=== PATIENT | male | born 1995 | race African-American/Black ===

== ENCOUNTER 2017-12-19 22:34 | Inpatient (IN) | payer MEDICAID ==
[2017-12-20 01:48] LABS: ADD MAN DIFF? NO
[2017-12-20 01:51] LABS: BASOPHIL # 0.1 10^3/ul (0.0-0.1); BASOPHILS % 0.5 % (0.0-2.0); EOSINOPHILS % 0.2 % (0.0-7.0); HEMATOCRIT 37.6 % (42.0-52.0); HEMOGLOBIN 12.3 g/dl (14.0-18.0); IMMATURE GRANS #M 0.02 10^3/ul; IMMATURE GRANS % (M) 0.2 %; LYMPHOCYTES # 1.9 10^3/ul (0.8-2.9); LYMPHOCYTES % 18.1 % (15.0-51.0); MEAN CORPUSCULAR HEMOGLOBIN 28.1 pg (29.0-33.0); MEAN CORPUSCULAR HGB CONC 32.7 g/dl (32.0-37.0); MEAN CORPUSCULAR VOLUME 85.8 fl (82.0-101.0); MEAN PLATELET VOLUME 9.8 fl (7.4-10.4); MONOCYTE # 0.7 10^3/ul (0.3-0.9); MONOCYTES % 6.5 % (0.0-11.0); NEUTROPHIL # 7.6 10^3/ul (1.6-7.5); NEUTROPHILS % 74.5 % (39.0-77.0); PLATELET COUNT 460 10^3/UL (140-415); RED BLOOD COUNT 4.38 10^6/ul (4.70-6.10); RED CELL DISTRIBUTION WIDTH 12.2 % (11.5-14.5)
[2017-12-20 01:51] LABS: WHITE BLOOD COUNT 10.3 10^3/ul (4.8-10.8)
[2017-12-20] MEDS: PIPER-TAZO 3.375 GM IV (PMX) 100 ML IVPB (01:58)
[2017-12-20] MEDS: ONDANSETRON 4 MG INJ IV (02:10)
[2017-12-20] MEDS: morphine 4 MG/ML VIAL IV (02:11)
[2017-12-20 02:12] LABS: INR 1.12; PROTIME 14.6 Sec (11.9-14.9); PT RATIO 1.1
[2017-12-20 02:19] LABS: ALANINE AMINOTRANSFERASE 22 IU/L (13-69); ALBUMIN 3.9 g/dl (3.3-4.9); ALBUMIN/GLOBULIN RATIO 0.72; ALKALINE PHOSPHATASE 165 IU/L (42-121); ANION GAP 13 (8-16); ASPARTATE AMINO TRANSFERASE 29 IU/L (15-46); BILIRUBIN,INDIRECT 0.2 mg/dl (0-1.1); BILIRUBIN,TOTAL 0.2 mg/dl (0.2-1.3); BLOOD UREA NITROGEN 6 mg/dl (7-20); CALCIUM 9.7 mg/dl (8.4-10.2); CARBON DIOXIDE 30 mmol/L (21-31); CHLORIDE 100 mmol/L (97-110); CREATININE 0.61 mg/dl (0.61-1.24); GLUCOSE 92 mg/dl (70-220); POTASSIUM 4.4 mmol/L (3.5-5.1); SODIUM 139 mmol/L (135-144); TOTAL PROTEIN 9.3 g/dl (6.1-8.1)
[2017-12-20 02:31] LABS: B-TYPE NATRIURETIC PEPTIDE 88 PG/ML (0-125); TROPONIN-I < 0.010 ng/ml (0.000-0.120)
[2017-12-20] MEDS ORDERED: HYDROCODONE/APAP (5/325) TAB PO (04:30)
[2017-12-20] MEDS ORDERED: ALBUTEROL/IPRATROPIUM (NEB) 3 ML AMP HHN (04:30)
[2017-12-20] MEDS ORDERED: NACL 0.9% 3 ML SYG IV (04:30)
[2017-12-20] MEDS ORDERED: ONDANSETRON 4 MG INJ IV (04:30)
[2017-12-20] MEDS ORDERED: VANCOMYCIN IV PER PHARMACY XX (04:30)
[2017-12-20] MEDS ORDERED: ACETAMINOPHEN 325 MG TAB PO (04:30)
[2017-12-20] MEDS: VANCOMYCIN 1.25 GM in SOD CHLORIDE 0.9% 250 ML IVPB (05:31)
[2017-12-20] MEDS: CEFEPIME 1GM/50 ML (PMX) 50 ML IVPB ×2 (10:59→23:21)
[2017-12-20] MEDS: HYDROCODONE/APAP (5/325) TAB PO ×2 (11:13→21:18)
[2017-12-20] MEDS: VANCOMYCIN 1 GM 250 ML IVPB ×2 (13:50→21:13)
[2017-12-21 04:06] LABS: ADD MAN DIFF? NO
[2017-12-21 04:07] LABS: BASOPHILS % 0.8 % (0.0-2.0); EOSINOPHILS # 0.2 10^3/ul (0.0-0.5); EOSINOPHILS % 3.5 % (0.0-7.0); HEMATOCRIT 34.9 % (42.0-52.0); HEMOGLOBIN 11.1 g/dl (14.0-18.0); LYMPHOCYTES # 1.7 10^3/ul (0.8-2.9); MEAN CORPUSCULAR HEMOGLOBIN 27.5 pg (29.0-33.0); MEAN CORPUSCULAR HGB CONC 31.8 g/dl (32.0-37.0); MEAN CORPUSCULAR VOLUME 86.4 fl (82.0-101.0); MEAN PLATELET VOLUME 9.1 fl (7.4-10.4); MONOCYTE # 0.5 10^3/ul (0.3-0.9); MONOCYTES % 10.6 % (0.0-11.0); NEUTROPHIL # 2.5 10^3/ul (1.6-7.5); NEUTROPHILS % 49.9 % (39.0-77.0); PLATELET COUNT 401 10^3/UL (140-415); RED BLOOD COUNT 4.04 10^6/ul (4.70-6.10); RED CELL DISTRIBUTION WIDTH 12.4 % (11.5-14.5)
[2017-12-21 04:07] LABS: WHITE BLOOD COUNT 4.9 10^3/ul (4.8-10.8)
[2017-12-21 04:26] LABS: ALANINE AMINOTRANSFERASE 24 IU/L (13-69); ALBUMIN 3.3 g/dl (3.3-4.9); ALBUMIN/GLOBULIN RATIO 0.78; ALKALINE PHOSPHATASE 123 IU/L (42-121); ANION GAP 11 (8-16); ASPARTATE AMINO TRANSFERASE 22 IU/L (15-46); BILIRUBIN,INDIRECT 0.2 mg/dl (0-1.1); BILIRUBIN,TOTAL 0.2 mg/dl (0.2-1.3); BLOOD UREA NITROGEN 6 mg/dl (7-20); CALCIUM 9.4 mg/dl (8.4-10.2); CARBON DIOXIDE 28 mmol/L (21-31); CHLORIDE 105 mmol/L (97-110); CREATININE 0.64 mg/dl (0.61-1.24); GLUCOSE 84 mg/dl (70-220); MAGNESIUM 1.7 mg/dl (1.7-2.5); PHOSPHORUS 4.9 mg/dl (2.5-4.9); POTASSIUM 4.8 mmol/L (3.5-5.1); SODIUM 139 mmol/L (135-144); TOTAL PROTEIN 7.5 g/dl (6.1-8.1)
[2017-12-21 04:30] LABS: VANCOMYCIN,TROUGH 12.6 ug/ml (10.0-20.0)
[2017-12-21] MEDS: VANCOMYCIN 1 GM 250 ML IVPB ×3 (04:41→21:57)
[2017-12-21] MEDS: CEFEPIME 1GM/50 ML (PMX) 50 ML IVPB ×2 (08:58→21:08)
[2017-12-21] MEDS: IOHEXOL 300MG/ML 150 ML BTL (11:47)
[2017-12-21] MEDS: SOD CHLORIDE 0.9% 100 ML (11:47)
[2017-12-21] MEDS: HYDROCODONE/APAP (5/325) TAB PO (21:57)
[2017-12-22] MEDS: VANCOMYCIN 1 GM 250 ML IVPB (04:09)
[2017-12-22] MEDS: CEFEPIME 1GM/50 ML (PMX) 50 ML IVPB (08:57)
== END 2017-12-22 12:45 | disposition home or self-care (01) | DRG 179 ==
LOC: 2NE 12-21 15:05 → E/R 22:34 → MS1 12-20 02:20
DX: J86.9 Pyothorax without fistula (principal); Z72.0 Tobacco use
CPT/HCPCS: 36415; 71045; 71260; 72128; 72131; 80053; 80202; 83735; 83880; 84100; 84484; 85025; 85610; 85730; 87040; 87081; 93005; 96374; 96375; 99285-25

== ENCOUNTER 2018-01-03 10:49 | Emergency (ER) | payer MEDICAID | END 2018-01-03 13:43 | disposition home or self-care (01) | LOC: FTE 10:49 | DX: L90.5 Scar conditions and fibrosis of skin (principal); Z87.09 Personal history of other diseases of the respiratory system | CPT/HCPCS: 99282; Z7502 ==

== ENCOUNTER 2019-01-19 13:40 | Emergency (ER) | payer OTHER, MEDICAID | END 2019-01-19 15:38 | disposition home or self-care (01) | LOC: FTE 13:40 | DX: S99.912A Unspecified injury of left ankle, initial encounter (principal); X58.XXXA Exposure to other specified factors, initial encounter; Y92.310 Basketball court as the place of occurrence of the external cause | CPT/HCPCS: 29515; 73610; 99283-25 ==